=== PATIENT | female | born 1950 | race Caucasian/White ===

== ENCOUNTER → 2017-09-01 | Outpatient (CLI) | payer MEDICARE, OTHER ==
[~2017-09-01] MED LIST: AMLO10; AMLO5 PO; CITA20 PO; CLOP75; CLOT10; ESCI10; FAMC500 PO; HYDCHL12.5; LEVSOD100 PO; LEVSOD75; LEVSOD75 PO; LINZESS145 MCG; METO50ER PO; NEBI5 PO; OMEP20ER PO; OXYACE5T PO; PRAV20 PO; PRED10 PO
[2017-09-01 14:17] LABS: Adenovirus F 40/41 Not Detected (NOT DETECT); Astrovirus Not Detected (NOT DETECT); Cryptosporidium Not Detected (NOT DETECT); Cyclospora Cayetanensis Not Detected (NOT DETECT); E. Coli O157 Not Detected (NOT DETECT); Entamoeba Histolytica Not Detected (NOT DETECT); Enteroaggregative E. coli-EAEC Not Detected (NOT DETECT); Enteropathogenic E. coli-EPEC Not Detected (NOT DETECT); Enterotoxigenic E. coli-ETEC Not Detected (NOT DETECT); Giardia Lamblia Not Detected (NOT DETECT); Norovirus GI/GII Not Detected (NOT DETECT); Plesiomonas Shigelloides Not Detected (NOT DETECT); Rotavirus A Not Detected (NOT DETECT); Salmonella Sp Not Detected (NOT DETECT); Shiga Toxin-prod E. coli-STEC Not Detected (NOT DETECT); Shigella/Enteroin E. coli-EIEC Not Detected (NOT DETECT); Vibrio Cholerae Not Detected (NOT DETECT); Vibrio Sp Not Detected (NOT DETECT); Yersinia Enterocolitica Not Detected (NOT DETECT)
[2017-09-01 20:33] LABS: Campylobacter Sp Detected (NOT DETECT); Sapovirus Detected (NOT DETECT)
== END | disposition home or self-care (01) ==
LOC: LAB EV 13:20
PROVIDERS: Nurse Practitioner Family
DX: K52.9 Noninfective gastroenteritis and colitis, unspecified (principal)
CPT/HCPCS: 87507

== ENCOUNTER 2020-10-27 04:22 | Day surgery (SDC) | payer MEDICARE, OTHER ==
[2020-10-27] MEDS ORDERED: LISI20 PO (09:47)
== END 2020-10-27 10:47 | disposition home or self-care (01) ==
LOC: ATC 04:22
DX: D35.2 Benign neoplasm of pituitary gland (principal); I10 Essential (primary) hypertension; J45.909 Unspecified asthma, uncomplicated; E03.9 Hypothyroidism, unspecified; Z88.8 Allergy status to other drugs, medicaments and biological substances; Z86.73 Personal history of transient ischemic attack (TIA), and cerebral infarction without residual deficits
CPT/HCPCS: 80400; 82533; J0834

== ENCOUNTER 2021-01-18 09:02 | Day surgery (SDC) | payer MEDICARE, OTHER ==
[~2021-01-18] VITALS: Ht 160 cm; Wt 57.4 kg
[~2021-01-18 09:02] MED LIST changes: +ASPI81CH PO; +HYDCOR10 PO; +LISI20 PO
--- NOTE | 2021-01-18 18:28 | NUR ---
PATIENT ARRIVED TO THE FLOOR FROM PACU ON BED. POLAR PACK IN PLACE AND DRESSING TO LEFT HIP CLEAN, DRY AND INTACT. FEELING SENSATION AT KNEES NOW AND CAN MOVE HER LEGS. COMPLAINS OF NAUSEA AND DIZZINESS WITH MOVEMENT. HAS BEEN MEDICATED WITH NAUSEA MEDS WITH SOME RELIEF. HAS HAD SIPS OF WATER WITH NO VOMITING. NO COMPLAINTS OF PAIN VOICED. CALL LIGHT AND WATER IN EASY REACH. ABLE TO MAKE NEEDS AND WANTS KNOWN. NO SIGNS OR SYMPTOMS ACUTE DISTRESS NOTED AT THIS TIME. CURRENTLY RESTING WITH EYES CLOSED. DAUGHTER VISITED. BLADDER SCAN DUE AT 1930, PATIENT HAS NO DESIRE TO URINATE AT THIS TIME. WILL CONTINUE TO MONITOR.
[2021-01-19 04:41] LABS: BASOPHILS ABSOLUTE AUTO 0.01 K/mm3 (0.00-0.23); BASOPHILS PERCENT AUTO 0 % (0-2); EOSINOPHILS PERCENT AUTO 0 % (0-6); Hematocrit 29.2 % (33.0-51.0); Hemoglobin 9.7 g/dL (11.5-16.0); IMMATURE GRAN ABSOLUTE AUTO 0.06 K/mm3 (0.00-0.10); IMMATURE GRAN PERCENT AUTO 1 % (0-1); LYMPHOCYTES ABSOLUTE AUTO 0.64 K/mm3 (0.84-5.20); LYMPHOCYTES PERCENT AUTO 6 % (21-46); MONOCYTES ABSOLUTE AUTO 0.65 K/mm3 (0.16-1.47); MONOCYTES PERCENT AUTO 6 % (4-13); Mean Corpuscular HGB 32.6 pg (26.0-34.0); Mean Corpuscular HGB Conc 33.2 g/dL (31.5-36.5); Mean Corpuscular Volume 98 fL (80-100); Mean Platelet Volume 10.4 fL (9.1-12.4); NEUTROPHILS ABSOLUTE AUTO 9.34 K/mm3 (1.96-9.15); NEUTROPHILS PERCENT AUTO 87 % (41-73); Platelet Count 211 K/mm3 (150-400); RDW Coefficient Variation 13.2 % (11.7-14.2); RDW Standard Deviation 47.4 fL (35.1-46.3); Red Blood Cell Count 2.98 M/mm3 (3.80-5.20)
--- NOTE | 2021-01-19 04:51 | NUR ---
PT IS A/OX3. ABLE TO MAKE HER NEEDS KNOWN. PLEASANT AND COOPERATIVE WITH STAFF AND HER CARE. NO EVENTS OVER NIGHT. SHE IS S/P LTHA. LT HIP INCISION COVERED WITH AN AQUACEL DRSG. WBAT TO LLE. BT'S POS X4. DENIED N/V. TOLERATING CL DIET WELL. PAIN IS MINIMAL. REFUSED PAIN MEDS. VOIDS W/OUT DIFFICULTY W/BED BARAKAT. DID HAVE SPINAL BLOCK W/SURGERY. HAS MOVEMENT AND SENSATION TO BLE'S.
[2021-01-19 05:01] LABS: Anion Gap 4 mmol/L (6-16); Blood Urea Nitrogen 11 mg/dL (8-24); Bun/Creatinine Ratio 14.4 (12.0-20.0); CO2, Blood 27 mmol/L (21-32); Calcium, Blood 8.6 mg/dL (8.5-10.1); Chloride, Blood 103 mmol/L (98-108); Creatinine, Blood 0.76 mg/dL (0.40-1.00); Glomerular Filtration Rate >60 (60-); Glucose, Blood 114 mg/dL (70-99); Potassium, Blood 4.6 mmol/L (3.5-5.5); Sodium, Blood 134 mmol/L (136-145)
[2021-01-19] MEDS ORDERED: ASPI81CH PO (09:49)
[2021-01-19] MEDS ORDERED: OXAYDO5 M5 PO (09:49)
[2021-01-19] MEDS ORDERED: ACET500 PO (09:49)
--- NOTE | 2021-01-19 15:48 | NUR ---
DISCHARGE INSTRUCTIONS GIVEN TO PATIENT., PATIENT VERBALIZED UNDERSTANDING OF INSTRUCTIONS. DRESSING TO LEFT HIP CLEAN/DRY/INTACT. IV REMOVED. PATIENT DISCHARGED VIA WHEELCHAIR.
== END 2021-01-19 15:48 | disposition home or self-care (01) ==
LOC: ORSCMMR 09:02 → PRE IP 09:30 → EDSTATUS 10:30 → PRE IP 10:45 → SURS 13:48 → ORSCMMR 01-19 15:48
PROVIDERS: Orthopaedic Surgery
PROC: 0SRB02A Replacement of Left Hip Joint with Metal on Polyethylene Synthetic Substitute, Uncemented, Open Approach (ICD-10-PCS; principal; 2021-01-18 10:45)
DX: M16.12 Unilateral primary osteoarthritis, left hip (principal); I10 Essential (primary) hypertension; K21.9 Gastro-esophageal reflux disease without esophagitis; F41.9 Anxiety disorder, unspecified; Z86.73 Personal history of transient ischemic attack (TIA), and cerebral infarction without residual deficits; Z79.82 Long term (current) use of aspirin; Z79.899 Other long term (current) drug therapy
CPT/HCPCS: 36415; 72170; 80048; 83735; 85025; 97110; 97110-CQ; 97116; 97116-CQ; 97162; 97530-CQ; A9270; C1713; C1776; J0171; J0690; J0735; J1100; J1885; J2250; J2405; J2704; J2765; J2795; J3010; J7120

== ENCOUNTER 2021-01-26 09:38 | Emergency (ER) | payer MEDICARE, OTHER ==
[~2021-01-26] VITALS: Ht 157.5 cm; Wt 58.1 kg
[~2021-01-26 09:38] MED LIST changes: +ACET500 PO; +OXAYDO5 M5 PO
== END 2021-01-26 11:33 | disposition home or self-care (01) ==
LOC: ER 09:38
DX: S80.12XA Contusion of left lower leg, initial encounter (principal); I10 Essential (primary) hypertension; Z79.899 Other long term (current) drug therapy; X58.XXXA Exposure to other specified factors, initial encounter
CPT/HCPCS: 93971; 99284-25

== ENCOUNTER 2022-01-24 16:40 | Observation (INO) | payer MEDICARE, OTHER ==
[~2022-01-24] VITALS: Ht 160 cm; Wt 56.8 kg
[~2022-01-24 16:40] MED LIST changes: -ACET325 PO; -ELIQUIS5 M2 PO; -METOPROLOL SUCC25 MG PO; -OXYC5 PO; -PANT40 PO
--- NOTE | 2022-01-24 18:47 | NUR ---
PT IS DIRECT ADMIT TO MEDICAL FLOOR AT 1700. PT ABLE TO AMBULATE TO BATHROOM AND THEN BED WITH MINIMAL ASSISTANCE. PT HAS VERY SLOW, CAREFUL MOVEMENT AND STATES FEELING DIZZY. PT A&OX4 AND PLEASANT. PT HAS HAD FAMILY AT BEDSIDE. PT C/O OF PAIN IN LOWER BACK AND RIGHT HIP R/T FALL. HEAT PACK IN PLACE. PT AND FAMILY ORIENTED TO ROOM. BED IN LOWEST POSTITION AND CALL LIGHT IN REACH.
[2022-01-25 05:17] LABS: BASOPHILS ABSOLUTE AUTO 0.04 K/mm3 (0.00-0.23); BASOPHILS PERCENT AUTO 1 % (0-2); EOSINOPHILS ABSOLUTE AUTO 0.08 K/mm3 (0.00-0.68); EOSINOPHILS PERCENT AUTO 2 % (0-6); Hematocrit 31.3 % (33.0-51.0); Hemoglobin 10.6 g/dL (11.5-16.0); IMMATURE GRAN ABSOLUTE AUTO 0.01 K/mm3 (0.00-0.10); IMMATURE GRAN PERCENT AUTO 0 % (0-1); LYMPHOCYTES ABSOLUTE AUTO 0.86 K/mm3 (0.84-5.20); LYMPHOCYTES PERCENT AUTO 19 % (21-46); MONOCYTES ABSOLUTE AUTO 0.48 K/mm3 (0.16-1.47); MONOCYTES PERCENT AUTO 10 % (4-13); Mean Corpuscular HGB 33.2 pg (26.0-34.0); Mean Corpuscular HGB Conc 33.9 g/dL (31.5-36.5); Mean Corpuscular Volume 98 fL (80-100); Mean Platelet Volume 9.8 fL (9.1-12.4); NEUTROPHILS ABSOLUTE AUTO 3.16 K/mm3 (1.96-9.15); NEUTROPHILS PERCENT AUTO 68 % (41-73); Platelet Count 247 K/mm3 (150-400); RDW Coefficient Variation 13.4 % (11.7-14.2); RDW Standard Deviation 48.7 fL (35.1-46.3); Red Blood Cell Count 3.19 M/mm3 (3.80-5.20); White Blood Cell Count 4.63 K/mm3 (4.00-11.30)
--- NOTE | 2022-01-25 05:31 | NUR ---
TRACK TEMPLATE MAKER SUMMARY NO ACUTE CHANGES. PT IS A/OX4; SLOW TO RESPOND/MOVE. PT IS ABLE TO XFER OUT OF BED/AMBULATE 1 PERSON SBA. PT DENIES SOB. VSS. PT CONT TO C/O PAIN IN LOWER BACK AND COMES/GOES AND NAUSEA; MED P/EMAR. PT HAS LISINOPRIL AND THYROID MEDICINE F/HOME ON HER PERSON. VERIFIED MEDS WERE IN EM[facility] F/APPROPIATE DOSE AND EDUCATION PT NOT TO TAKE HOME MEDS; ADVISED T/SEND HOME W/FAMILY. PT AWAKE INTERMITTANTLY T/O THE NIGHT. PT ABLE TO ADVOCATE FOR NEEDS AND CALLS APPROPRIATELY; CALL LIGHT IN REACH.
[2022-01-25 05:44] LABS: Albumin, Blood 3.1 g/dL (3.4-5.0); Albumin/Globulin Ratio 1.1 (0.8-1.8); Bilirubin, Total 0.6 mg/dL (0.1-1.0); Bun/Creatinine Ratio 15.9 (12.0-20.0); Calcium, Blood 8.3 mg/dL (8.5-10.1); Creatinine, Blood 0.82 mg/dL (0.40-1.00); Globulin, Blood 2.9 g/dL (2.2-4.0); Magnesium, Blood 2.1 mg/dL (1.6-2.4); Phosphorus, Blood 3.2 mg/dL (2.5-4.9); Potassium, Blood 4.4 mmol/L (3.5-5.5)
[2022-01-25] MEDS ORDERED: ELIQUIS5 M2 PO (17:28)
--- NOTE | 2022-01-25 18:18 | NUR ---
DISCHARGE NOTE. PT D/C'D HOME WITH DAUGHTER. DISCHARGE INSTRUCTIONS AND EDUCATION GIVEN TO PT. PT HAD NO QUESTIONS OR CONCERNS AT THIS TIME. IV REMOVED WITH CATHETER TIP IN PLACE. PT TOLERATED WELL. TELE D/C'D. PT GIVEN ONE TIME DOSE OF ELIQUIS, PER DR FLORES, D/T PHARMACY CLOSING FOR NIGHT. BELONGINGS GIVEN TO PT. PT TAKEN TO VEHICLE BY WHEELCHAIR.
[2022-01-30] MEDS ORDERED: METOPROLOL SUCC25 MG PO (20:13)
[2022-01-30] MEDS ORDERED: LISI20 PO (20:14)
[2022-02-02] MEDS ORDERED: ELIQUIS5 M2 PO (10:16)
[2022-02-02] MEDS ORDERED: ACET325 PO (10:16)
[2022-02-02] MEDS ORDERED: PANT40 PO (10:17)
[2022-02-02] MEDS ORDERED: OXYC5 PO (10:17)
== END 2022-01-25 18:15 | disposition home or self-care (01) ==
LOC: MEDS 16:40
PROVIDERS: Family Medicine; ADMIT Family Medicine
DX: R55 Syncope and collapse (principal); I26.99 Other pulmonary embolism without acute cor pulmonale; I47.1 Supraventricular tachycardia; S30.0XXA Contusion of lower back and pelvis, initial encounter; W19.XXXA Unspecified fall, initial encounter; E87.1 Hypo-osmolality and hyponatremia; I45.19 Other right bundle-branch block; I10 Essential (primary) hypertension; E78.5 Hyperlipidemia, unspecified; K21.9 Gastro-esophageal reflux disease without esophagitis; E03.9 Hypothyroidism, unspecified; Z86.73 Personal history of transient ischemic attack (TIA), and cerebral infarction without residual deficits; Z79.82 Long term (current) use of aspirin; Z79.899 Other long term (current) drug therapy
CPT/HCPCS: 36415; 80053; 82533; 83735; 84100; 84484; 85025; 93306; 93970; A9270; J1650; J3480

== ENCOUNTER → 2022-01-24 | Outpatient (CLI) | payer MEDICARE, OTHER ==
[~2022-01-24] MED LIST changes: +ACET325 PO; +ELIQUIS5 M2 PO; +METOPROLOL SUCC25 MG PO; +OXYC5 PO; +PANT40 PO
[2022-01-24 11:46] LABS: BASOPHILS ABSOLUTE AUTO 0.04 K/mm3 (0.00-0.23); BASOPHILS PERCENT AUTO 1 % (0-2); EOSINOPHILS ABSOLUTE AUTO 0.07 K/mm3 (0.00-0.68); EOSINOPHILS PERCENT AUTO 1 % (0-6); Hematocrit 38.8 % (33.0-51.0); Hemoglobin 13.4 g/dL (11.5-16.0); IMMATURE GRAN ABSOLUTE AUTO 0.11 K/mm3 (0.00-0.10); IMMATURE GRAN PERCENT AUTO 2 % (0-1); LYMPHOCYTES ABSOLUTE AUTO 1.22 K/mm3 (0.84-5.20); LYMPHOCYTES PERCENT AUTO 21 % (21-46); MONOCYTES ABSOLUTE AUTO 0.58 K/mm3 (0.16-1.47); MONOCYTES PERCENT AUTO 10 % (4-13); Mean Corpuscular HGB 33.6 pg (26.0-34.0); Mean Corpuscular HGB Conc 34.5 g/dL (31.5-36.5); Mean Corpuscular Volume 97 fL (80-100); Mean Platelet Volume 9.6 fL (9.1-12.4); NEUTROPHILS ABSOLUTE AUTO 3.91 K/mm3 (1.96-9.15); NEUTROPHILS PERCENT AUTO 66 % (41-73); Platelet Count 325 K/mm3 (150-400); RDW Coefficient Variation 13.4 % (11.7-14.2); Red Blood Cell Count 3.99 M/mm3 (3.80-5.20); White Blood Cell Count 5.93 K/mm3 (4.00-11.30)
[2022-01-24 12:04] LABS: Albumin, Blood 4.1 g/dL (3.4-5.0); Albumin/Globulin Ratio 1.1 (0.8-1.8); Bilirubin, Total 0.6 mg/dL (0.1-1.0); Bun/Creatinine Ratio 11.6 (12.0-20.0); Calcium, Blood 9.1 mg/dL (8.5-10.1); Creatinine, Blood 0.95 mg/dL (0.40-1.00); Globulin, Blood 3.9 g/dL (2.2-4.0); Potassium, Blood 3.6 mmol/L (3.5-5.5)
== END | disposition home or self-care (01) ==
LOC: LAB 11:40 → LAB SHORT 11:40
PROVIDERS: Family Medicine
DX: R55 Syncope and collapse (principal)
CPT/HCPCS: 80053; 84484; 85025; 85379

== ENCOUNTER → 2022-01-26 | Outpatient (CLI) | payer MEDICARE, OTHER ==
[~2022-01-26] MED LIST changes: +ACET325 PO; +ELIQUIS5 M2 PO; +METOPROLOL SUCC25 MG PO; +OXYC5 PO; +PANT40 PO
[2022-01-26 12:11] LABS: BASOPHILS ABSOLUTE AUTO 0.05 K/mm3 (0.00-0.23); BASOPHILS PERCENT AUTO 1 % (0-2); EOSINOPHILS ABSOLUTE AUTO 0.05 K/mm3 (0.00-0.68); EOSINOPHILS PERCENT AUTO 1 % (0-6); IMMATURE GRAN ABSOLUTE AUTO 0.03 K/mm3 (0.00-0.10); IMMATURE GRAN PERCENT AUTO 1 % (0-1); LYMPHOCYTES PERCENT AUTO 8 % (21-46); MONOCYTES ABSOLUTE AUTO 0.57 K/mm3 (0.16-1.47); MONOCYTES PERCENT AUTO 10 % (4-13); Mean Corpuscular HGB 33.4 pg (26.0-34.0); Mean Corpuscular HGB Conc 34.3 g/dL (31.5-36.5); Mean Corpuscular Volume 98 fL (80-100); Mean Platelet Volume 9.6 fL (9.1-12.4); NEUTROPHILS ABSOLUTE AUTO 4.74 K/mm3 (1.96-9.15); NEUTROPHILS PERCENT AUTO 80 % (41-73); Platelet Count 254 K/mm3 (150-400); RDW Coefficient Variation 13.2 % (11.7-14.2); RDW Standard Deviation 47.8 fL (35.1-46.3); Red Blood Cell Count 3.59 M/mm3 (3.80-5.20); White Blood Cell Count 5.94 K/mm3 (4.00-11.30)
== END | disposition home or self-care (01) ==
LOC: LAB 11:51 → LAB SHORT 11:51
PROVIDERS: Family Medicine
DX: D64.9 Anemia, unspecified (principal)
CPT/HCPCS: 85025

== ENCOUNTER 2022-01-30 19:10 | Inpatient (IN) | payer MEDICARE, OTHER ==
[~2022-01-30] VITALS: Ht 160 cm; Wt 60.7 kg
[~2022-01-30 19:10] MED LIST changes: -ACET325 PO; -METOPROLOL SUCC25 MG PO; -OXYC5 PO; -PANT40 PO
[2022-01-30] MEDS ORDERED: METOPROLOL SUCC25 MG PO ×2 (20:13)
[2022-01-30] MEDS ORDERED: LISI20 PO ×2 (20:14)
[2022-01-30 20:36] LABS: BASOPHILS ABSOLUTE AUTO 0.05 K/mm3 (0.00-0.23); BASOPHILS PERCENT AUTO 0 % (0-2); EOSINOPHILS ABSOLUTE AUTO 0.04 K/mm3 (0.00-0.68); EOSINOPHILS PERCENT AUTO 0 % (0-6); Hematocrit 31.8 % (33.0-51.0); Hemoglobin 10.8 g/dL (11.5-16.0); IMMATURE GRAN ABSOLUTE AUTO 0.04 K/mm3 (0.00-0.10); IMMATURE GRAN PERCENT AUTO 0 % (0-1); LYMPHOCYTES ABSOLUTE AUTO 0.63 K/mm3 (0.84-5.20); LYMPHOCYTES PERCENT AUTO 5 % (21-46); MONOCYTES ABSOLUTE AUTO 0.82 K/mm3 (0.16-1.47); MONOCYTES PERCENT AUTO 7 % (4-13); Mean Corpuscular HGB 33.9 pg (26.0-34.0); Mean Corpuscular Volume 100 fL (80-100); NEUTROPHILS ABSOLUTE AUTO 11.01 K/mm3 (1.96-9.15); NEUTROPHILS PERCENT AUTO 88 % (41-73); Platelet Count 247 K/mm3 (150-400); RDW Coefficient Variation 13.4 % (11.7-14.2); RDW Standard Deviation 48.9 fL (35.1-46.3); Red Blood Cell Count 3.19 M/mm3 (3.80-5.20); White Blood Cell Count 12.59 K/mm3 (4.00-11.30)
[2022-01-30 20:39] LABS: International Normalized Ratio 1.09; Prothrombin Time Results 11.4 Sec (9.7-11.5)
[2022-01-30 21:05] LABS: Albumin, Blood 3.4 g/dL (3.4-5.0); Albumin/Globulin Ratio 0.9 (0.8-1.8); Bilirubin, Total 0.3 mg/dL (0.1-1.0); Bun/Creatinine Ratio 20.8 (12.0-20.0); Calcium, Blood 8.3 mg/dL (8.5-10.1); Creatinine, Blood 1.01 mg/dL (0.40-1.00); Globulin, Blood 3.6 g/dL (2.2-4.0); Potassium, Blood 4.2 mmol/L (3.5-5.5)
--- NOTE | 2022-01-31 03:15 | NUR ---
LATE ENTRY SPOKE TO DR SHERIDAN AT 0100 AM RE PT HYPOTENSION. ORDERS GIVEN FOR 1LNS BOLUS. WILL CONTINUE TO MONITOR
--- NOTE | 2022-01-31 03:16 | NUR ---
LATE ENTRY PT ARRIVED TO ICU BED 11 FROM APPEALS REFEREE AT 2306. TR BAND INFLATED ON RIGHT RADIAL W/NO BLEEDING NOTED. PT IS ALERT AND ORIENTED X4. SHE IS HAVING PAIN FROM A FRACTURED BACK AND RIGHT HIP FROM A RECENT FALL. VSS AT THIS TIME. NO ACUTE S/S OF DISTRESS NOTED AT TIME OF ADMISSION. WILL CONTINUE TO MONITOR.
[2022-01-31 04:06] LABS: Calcium, Blood 7.3 mg/dL (8.5-10.1); Creatinine, Blood 0.81 mg/dL (0.40-1.00); Potassium, Blood 4.2 mmol/L (3.5-5.5)
--- NOTE | 2022-01-31 06:38 | NUR ---
SHIFT SUMMERY PT IS ALERT AND ORIENTED X4. SHE HAS HAD LOW TO SOFT BLOOD PRESSURES OVERNIGHT. DR SHERIDAN AWARE. SHE HAS A BACK AND RIGHT HIP FRACTURE THAT HAS MADE PAIN CONTROL DIFFICULT OVERNIGHT. SHE HAS HAD A SMALL AMOUNT OF CHEST PAIN AND A REPEAT CTA WAS DONE TO EVALUATE ANY WORSENING OF EXISITING PULMONARY EMBOLUS. PT TOLERATED PROCEDURE WELL, VS REMAINED STABLE THROUGHOUT. DR SHERIDAN AWARE OF RESULTS. SHE IS SB ON THE MONITOR AT THIS TIME AND HAS BEEN AFEBRILE. TR BAND WAS REMOVED PER POLICY. TEGADERM IN PLACE W/NO BLEEDING NOTED. SHE IS ON ROOM AIR.
--- NOTE | 2022-01-31 07:00 | NUR ---
ASSUME CARE: I have assumed care of this patient.
[2022-01-31 13:22] LABS: Creatine Kinase MB 1.7 ng/mL (0.0-3.6); Creatine Kinase MB Index 3.5 (0.0-4.0)
[2022-01-31 13:50] LABS: PCO2 Arterial 35.7 mmHg (35-45); PO2 Arterial 77.2 mmHg (80-100); pH Blood Arterial 7.44 (7.35-7.45)
--- NOTE | 2022-01-31 14:03 | NUR ---
pt in bed with grimace struggling with positioning and comfort due to back fractures. pt struggling to follow conversation and answer questions. She does anwer anay to ringing in ears and diffculty swallowing. When asked about headache and discomfort some difficlty tracking conversation. Pt guarding and grimacing very thin and frail. Review of medications with nursing. physicain added another lidocaine patch, pt decribing spasmotic pain to chest neck and head. She is also having increased low back pain and feel hard to take a breath. pt high risk for readmission and repeat ER visits. Cardiology in to see patient, suggest pt have pulmonolgy see her and a follow her on the outside. She has emboic event and difficulty with ventilation. Suggest oncology follow up. Will follow for symptom manangment and assist with care plan. Will continue supportive visits with family they are very anxious will need support. Will follow up with physician consults for plan of care.
--- NOTE | 2022-01-31 17:59 | NUR ---
SHIFT SUMMARY: NEURO: WNL; pt transfers self with standby assist. RESPIRATORY: SOB noted, worse with exertion CARDIAC: chest pain managed best with 5mg oxycodone. ECHO completed today. ECG unchanged from priors GI/: bowel regime started for constipation. pt tolerating gluten free, cardiac diet, but reports decreased appetite. Voiding on bedside commode independantly. SKIN: no breakdown noted. PSYCH/SOCIAL: family at bedside and supportive. pt anxious.
--- NOTE | 2022-02-01 06:37 | NUR ---
END OF SHIF SUMMARY NO ACUTE EVENTS OVERNIGHT VITALS WNL. C/O PAIN IN RT HIP NO CHEST PAIN COMPLAINTS GAVE OXY 5MG X2 OVER NIGHT PT STATED SLEPT VERY WELL. WILL CONTINUE TO MONITOR AND REPORT OFF ONCOMING RN.
[2022-02-01 07:42] LABS: BASOPHILS ABSOLUTE AUTO 0.03 K/mm3 (0.00-0.23); BASOPHILS PERCENT AUTO 1 % (0-2); EOSINOPHILS ABSOLUTE AUTO 0.06 K/mm3 (0.00-0.68); EOSINOPHILS PERCENT AUTO 1 % (0-6); Hematocrit 26.2 % (33.0-51.0); Hemoglobin 8.2 g/dL (11.5-16.0); IMMATURE GRAN ABSOLUTE AUTO 0.03 K/mm3 (0.00-0.10); IMMATURE GRAN PERCENT AUTO 1 % (0-1); LYMPHOCYTES ABSOLUTE AUTO 0.79 K/mm3 (0.84-5.20); LYMPHOCYTES PERCENT AUTO 13 % (21-46); MONOCYTES ABSOLUTE AUTO 0.62 K/mm3 (0.16-1.47); MONOCYTES PERCENT AUTO 10 % (4-13); Mean Corpuscular HGB 32.3 pg (26.0-34.0); Mean Corpuscular HGB Conc 31.3 g/dL (31.5-36.5); Mean Corpuscular Volume 103 fL (80-100); Mean Platelet Volume 10.2 fL (9.1-12.4); NEUTROPHILS ABSOLUTE AUTO 4.46 K/mm3 (1.96-9.15); NEUTROPHILS PERCENT AUTO 74 % (41-73); Platelet Count 216 K/mm3 (150-400); RDW Coefficient Variation 13.9 % (11.7-14.2); RDW Standard Deviation 53.1 fL (35.1-46.3); Red Blood Cell Count 2.54 M/mm3 (3.80-5.20); White Blood Cell Count 5.99 K/mm3 (4.00-11.30)
[2022-02-01 08:00] LABS: Calcium, Blood 8.2 mg/dL (8.5-10.1); Creatinine, Blood 0.81 mg/dL (0.40-1.00); Potassium, Blood 4.4 mmol/L (3.5-5.5)
[2022-02-01 08:50] LABS: Source, Urine Clean Catch
[2022-02-01 08:57] LABS: Appearance, Urine Clear (Clear); Bilirubin, Urine Neg (Neg); Blood, Urine 1+ (Neg); Color, Urine Yellow (P-Yellow); Glucose Qualitative, Urine Neg (Neg); Ketones, Urine Neg (Neg); Leukocyte Esterase, Urine 1+ (Neg); Nitrite, Urine Neg (Neg); Protein, Urine 1+ (Neg); Specific Gravity, Urine 1.015 (1.003-1.022); Urobilinogen, Urine NORM (Normal)
[2022-02-01 09:04] LABS: Bacteria Few /hpf; Mucus Light (0-Heavy); Red Blood Cells, Urine 0-2 /hpf (0-2); Squamous Epithelial Cells Few /hpf (Few); White Blood Cells, Urine 0-2 /hpf (0-5)
--- NOTE | 2022-02-01 10:30 | NUR ---
SHIFT ASSESSMENT PT ALERT AND ORIENTED, SITTING UPRIGHT IN BED. FOLLOWING COMMANDS, ARSALAN. ASSISTED PT TO BEDSIDE COMMODE, PT DID WELL, JUST NEEDED HELP MANAGING LINES. PT C/O LOW BACK PAIN AND R HIP PAIN, LIDOCAINE PATCHES APPLIED WITH LITTLE RELIEF. MEDICATED PT WITH PRN OXYCODONE. NSR ON THE USABILITY STRATEGIST. VSS. PT STILL HAS NOT HAD A BM, BOWEL CARE MEDS GIVEN. NO OTHER COMPLAINTS OR CONCERNS AT THIS TIME.
--- NOTE | 2022-02-01 13:21 | NUR ---
Spiritual Care Visit. Pt. is in bed and welcomes my visit. Pt. is unsettled mostly because she is shivering and requests another blanket. Pt. identifies as a woman of guy and welcomes spiritual care. Facilitate a short life review, and pray with Pt. Pt. displays evidence of engagement. Pt. verbalizes gratitude for the spiritual care visit. Relayed the need for warm blankets to ICU nurse Kecia.
--- NOTE | 2022-02-01 17:53 | NUR ---
SHIFT SUMMARY PT REMAINS ALERT AND ORIENTED. CONTINUES TO C/O MILD BACK/ HIP PAIN. MEDICATED PER JUN. NS INFUSING @ 125/HR, 1 OF 2 BAGS GIVEN. VSS. PT BEING TX TO MEDICAL FLOOR ROOM 360 VIA WHEELCHAIR.
--- NOTE | 2022-02-01 18:34 | NUR ---
SHIFT SUMMARY PATIENT ARRIVED ON MEDICAL FLOOR APROX 1814. RESTARTED IV FLUIDS AND ABX. NO ACUTE EVENTS. WILL REPORT TO FORECLOSURE PAR[place]GAL.
--- NOTE | 2022-02-02 05:39 | NUR ---
SHIFT SUMMARY PATIENT ALERT AND ORIENTED. MEDICATED PER EMAR FOR PAIN. HAD NO COMPLAINTS OF SHORTNESS OF BREATH. NO ACUTE ISSUES NOTED OVERNIGHT. CALL LIGHT WITHIN REACH. REPORT GIVEN TO ONCOMING RN.
[2022-02-02] MEDS ORDERED: ACET325 PO ×2 (10:16)
[2022-02-02] MEDS ORDERED: ELIQUIS5 M2 PO ×2 (10:16)
[2022-02-02] MEDS ORDERED: PANT40 PO ×2 (10:17)
[2022-02-02] MEDS ORDERED: OXYC5 PO ×2 (10:17)
--- NOTE | 2022-02-02 11:16 | NUR ---
DISCHARGE SUMMARY PATIENT IS ALERT AND ORIENTED. PATIENT HAS BEEN IND IN ROOM THIS SHIFT. PATIENT HAD IVS REMOVED WNL. PATIENT IS BEING DISCHARGED HOME WITH SON TRANSPORTING. NO ACUTE EVENTS THIS SHIFT.
== END 2022-02-02 11:14 | disposition home or self-care (01) | DRG 287 ==
LOC: ER 19:10 → ICUW 21:44 → MEDS 02-01 15:27 → ICUW 02-01 15:27 → MEDS 02-01 18:01
PROVIDERS: Internal Medicine; Internal Medicine Cardiovascular Disease; Internal Medicine Critical Care Medicine; Student in an Organized Health Care Education/Training Program; ADMIT Internal Medicine
PROC: 4A023N7 Measurement of Cardiac Sampling and Pressure, Left Heart, Percutaneous Approach (ICD-10-PCS; principal; 2022-01-30)
PROC: B2111ZZ Fluoroscopy of Multiple Coronary Arteries using Low Osmolar Contrast (ICD-10-PCS; 2022-01-30)
DX: I25.111 Atherosclerotic heart disease of native coronary artery with angina pectoris with documented spasm (principal); S32.019A Unspecified fracture of first lumbar vertebra, initial encounter for closed fracture; I47.1 Supraventricular tachycardia; E87.1 Hypo-osmolality and hyponatremia; R78.81 Bacteremia; D72.829 Elevated white blood cell count, unspecified; I95.9 Hypotension, unspecified; Z86.73 Personal history of transient ischemic attack (TIA), and cerebral infarction without residual deficits; E78.5 Hyperlipidemia, unspecified; E03.9 Hypothyroidism, unspecified; W18.30XA Fall on same level, unspecified, initial encounter; Z86.718 Personal history of other venous thrombosis and embolism; Z86.711 Personal history of pulmonary embolism; Z90.710 Acquired absence of both cervix and uterus; Z98.890 Other specified postprocedural states; Z79.899 Other long term (current) drug therapy
CPT/HCPCS: 36415; 36600; 71045; 71260; 76937; 80048; 80053; 81001; 82550; 82553; 82803; 83880; 84145; 84484; 85025; 85610; 85651; 85730; 86430; 87040; 87086; 93005; 93010; 93308; 93321; 93454; 97110; 97116; 97162; 99152; 99153; A9270; C1769; C1887; C1894; J0295; J0456; J1644; J2250; J2405; J3010; J7030; J7040; J7050; J7120; Q9967

== ENCOUNTER → 2022-03-17 | Outpatient (CLI) | payer MEDICARE, OTHER ==
[~2022-03-17] MED LIST changes: +ACET325 PO; +METOPROLOL SUCC25 MG PO; +OXYC5 PO; +PANT40 PO
[2022-03-18 10:34] LABS: Stool Occult Bld Immuno 1 Negative (NEGATIVE)
== END | disposition home or self-care (01) ==
LOC: LAB 11:35 → LAB SHORT 11:35
PROVIDERS: Internal Medicine
DX: D53.9 Nutritional anemia, unspecified (principal)
CPT/HCPCS: 82274

== ENCOUNTER → 2023-01-02 | Outpatient (CLI) | payer MEDICARE, OTHER ==
[2023-01-03 11:03] LABS: Source, Urine Clean Catch
[2023-01-03 13:35] LABS: Bacteria Not Seen /hpf; Red Blood Cells, Urine Not Seen /hpf (0-2); Squamous Epithelial Cells Few /hpf (Few); White Blood Cells, Urine 0-2 /hpf (0-5)
== END ==
LOC: LAB 15:00 → LAB SHORT 15:00
PROVIDERS: Family Medicine
DX: R31.29 Other microscopic hematuria (principal)
CPT/HCPCS: 81015

== ENCOUNTER 2023-02-10 06:08 | Day surgery (SDC) | payer MEDICARE, OTHER ==
[~2023-02-10] VITALS: Ht 160 cm; Wt 56.6 kg
[2023-02-10] MEDS ORDERED: AMLO5 (06:47)
--- NOTE | 2023-02-10 07:31 | NUR ---
02/10/23 0731 Lashawn Garcia PATCH PULLED OUT OF PIXIS BY BRIGETTE AVILA PER DR. VALENTINO ORDERS. DR. HENDERSON WILL GIVE PATCH IN OR.
--- NOTE | 2023-02-10 09:18 | NUR ---
02/10/23 0917 VALENTIN JEAN BAPTISTE PT IS ALERT, TALKING. PT CONTINUES TO DENIES PAIN AND NAUSEA.
[2023-02-10 09:54] VITALS: BP 153/88
== END 2023-02-10 10:33 | disposition home or self-care (01) ==
LOC: ORSCSDS 06:08
PROVIDERS: Orthopaedic Surgery
PROC: 0MBM0ZZ Excision of Left Hip Bursa and Ligament, Open Approach (ICD-10-PCS; principal; 2023-02-10 07:30)
DX: M70.62 Trochanteric bursitis, left hip (principal); I10 Essential (primary) hypertension; Z86.73 Personal history of transient ischemic attack (TIA), and cerebral infarction without residual deficits; F41.9 Anxiety disorder, unspecified; Z86.718 Personal history of other venous thrombosis and embolism; Z79.01 Long term (current) use of anticoagulants; Z79.899 Other long term (current) drug therapy
CPT/HCPCS: A9270; J0690; J1100; J1885; J2405; J2704; J3010; J7120

== ENCOUNTER 2023-04-28 08:19 | Emergency (ER) | payer MEDICARE, OTHER ==
[~2023-04-28] VITALS: Ht 160 cm; Wt 58.1 kg
[~2023-04-28 08:19] MED LIST changes: +AMLO5
[2023-04-28 09:04] VITALS: BP 130/86
[2023-04-28 09:54] LABS: BASOPHILS ABSOLUTE AUTO 0.05 K/mm3 (0.00-0.23); BASOPHILS PERCENT AUTO 1 % (0-2); EOSINOPHILS ABSOLUTE AUTO 0.01 K/mm3 (0.00-0.68); EOSINOPHILS PERCENT AUTO 0 % (0-6); Hematocrit 37.1 % (33.0-51.0); Hemoglobin 12.4 g/dL (11.5-16.0); IMMATURE GRAN ABSOLUTE AUTO 0.02 K/mm3 (0.00-0.10); IMMATURE GRAN PERCENT AUTO 0 % (0-1); LYMPHOCYTES ABSOLUTE AUTO 0.91 K/mm3 (0.84-5.20); LYMPHOCYTES PERCENT AUTO 9 % (21-46); MONOCYTES ABSOLUTE AUTO 0.79 K/mm3 (0.16-1.47); MONOCYTES PERCENT AUTO 8 % (4-13); Mean Corpuscular HGB 33.3 pg (26.0-34.0); Mean Corpuscular HGB Conc 33.4 g/dL (31.5-36.5); Mean Corpuscular Volume 100 fL (80-100); NEUTROPHILS ABSOLUTE AUTO 8.38 K/mm3 (1.96-9.15); NEUTROPHILS PERCENT AUTO 82 % (41-73); Platelet Count 223 K/mm3 (150-400); RDW Coefficient Variation 13.8 % (11.7-14.2); RDW Standard Deviation 50.8 fL (35.1-46.3); Red Blood Cell Count 3.72 M/mm3 (3.80-5.20); White Blood Cell Count 10.16 K/mm3 (4.00-11.30)
[2023-04-28 10:15] LABS: Albumin, Blood 3.6 g/dL (3.4-5.0); Albumin/Globulin Ratio 0.9 (0.8-1.8); Bilirubin, Total 0.7 mg/dL (0.1-1.0); Bun/Creatinine Ratio 18.1 (12.0-20.0); Calcium, Blood 8.8 mg/dL (8.5-10.1); Creatinine, Blood 0.77 mg/dL (0.40-1.00); Globulin, Blood 4.2 g/dL (2.2-4.0); Potassium, Blood 4.1 mmol/L (3.5-5.5); Total Protein, Blood 7.8 g/dL (6.4-8.2)
[2023-04-28] MEDS ORDERED: Bactrim Ds Tab1 EACH PO (12:39)
== END 2023-04-28 13:11 | disposition home or self-care (01) ==
LOC: ER 08:19
PROVIDERS: Physician Assistant
DX: J34.0 Abscess, furuncle and carbuncle of nose (principal); I10 Essential (primary) hypertension; Z86.73 Personal history of transient ischemic attack (TIA), and cerebral infarction without residual deficits; Z79.01 Long term (current) use of anticoagulants; Z79.899 Other long term (current) drug therapy
CPT/HCPCS: 70487; 80053; 85025; 96365-59; 99284-25; A9270; J0690; Q9967

== ENCOUNTER → 2023-05-08 | Outpatient (CLI) | payer MEDICARE, OTHER ==
[~2023-05-08] MED LIST changes: +Bactrim Ds Tab1 EACH PO
[2023-05-08 11:05] LABS: BASOPHILS ABSOLUTE AUTO 0.02 K/mm3 (0.00-0.23); BASOPHILS PERCENT AUTO 1 % (0-2); EOSINOPHILS PERCENT AUTO 0 % (0-6); Hematocrit 34.2 % (33.0-51.0); Hemoglobin 11.3 g/dL (11.5-16.0); Mean Corpuscular HGB 33.3 pg (26.0-34.0); Mean Corpuscular Volume 101 fL (80-100); Mean Platelet Volume 9.4 fL (9.1-12.4); Platelet Count 232 K/mm3 (150-400); RDW Coefficient Variation 13.5 % (11.7-14.2); RDW Standard Deviation 50.4 fL (35.1-46.3); Red Blood Cell Count 3.39 M/mm3 (3.80-5.20); White Blood Cell Count 3.12 K/mm3 (4.00-11.30)
[2023-05-08 11:12] LABS: Albumin, Blood 3.5 g/dL (3.4-5.0); Anion Gap 7 mmol/L (6-16); Blood Urea Nitrogen 20 mg/dL (8-24); CO2, Blood 28 mmol/L (21-32); Calcium, Blood 9.1 mg/dL (8.5-10.1); Chloride, Blood 99 mmol/L (98-108); Creatinine, Blood 1.05 mg/dL (0.40-1.00); Glomerular Filtration Rate 56 (60-); Glucose, Blood 94 mg/dL (70-99); Phosphorus, Blood 4.1 mg/dL (2.5-4.9); Potassium, Blood 4.4 mmol/L (3.5-5.5); Sodium, Blood 134 mmol/L (136-145)
[2023-05-08 11:13] LABS: IMMATURE GRAN ABSOLUTE AUTO 0.01 K/mm3 (0.00-0.10); IMMATURE GRAN PERCENT AUTO 0 % (0-1); LYMPHOCYTES ABSOLUTE AUTO 1.55 K/mm3 (0.84-5.20); LYMPHOCYTES PERCENT AUTO 50 % (21-46); MONOCYTES ABSOLUTE AUTO 0.32 K/mm3 (0.16-1.47); MONOCYTES PERCENT AUTO 10 % (4-13); NEUTROPHILS ABSOLUTE AUTO 1.22 K/mm3 (1.96-9.15); NEUTROPHILS PERCENT AUTO 39 % (41-73)
== END | disposition home or self-care (01) ==
LOC: LAB 11:01 → LAB SHORT 11:01
PROVIDERS: Family Medicine
DX: E87.1 Hypo-osmolality and hyponatremia (principal)
CPT/HCPCS: 80069; 85025

== ENCOUNTER → 2024-04-27 | Outpatient (CLI) | payer MEDICARE, OTHER ==
[~2024-04-27] MED LIST changes: -AMLO5; +Cetirizine HCl10 MG PO; +MECL25 PO; +TRAM50 PO; +ZYRTEC10 M2 PO
[2024-05-01 13:54] LABS: HSV 1 SUBTYPE BY PCR Not Detected; HSV 2 SUBTYPE BY PCR Not Detected; HSV SUBTYPE SOURCE Not Provided
== END ==
LOC: LAB SHORT 13:00 → LAB 13:00
PROVIDERS: Physician Assistant
DX: J34.0 Abscess, furuncle and carbuncle of nose (principal)
CPT/HCPCS: 87070; 87077; 87147; 87186; 87529

== ENCOUNTER 2024-09-10 11:23 | Day surgery (SDC) | payer MEDICARE, OTHER ==
[~2024-09-10] VITALS: Ht 154.9 cm; Wt 62.2 kg
[2024-09-10] VITALS (14 sets, daily range): BP systolic 101–155; BP diastolic 46–89
[~2024-09-10 11:23] MED LIST changes: +Acetaminophen 500 MG Tab PO SCH; +CeFAZolin Sodium 2,000 MG in NS 100 ML IV SCH; +Chlorhexidine Mouth Care 15 ML UDC MT SCH; +Lactated Ringer's 1,000 ML IV SCH; +Mepivacaine MPF 2% Inj 20 ML Vial INJ SCH; +OxyCODONE HCL 10 MG TABCR PO SCH; +Ropivacaine 0.5% HCl/Pf 123.125 MG,EPINEPHrine HCL 0.25 MG,Ketorolac Tromethamine 15 MG... INFIL SCH; +TURMERIC500 M2 PO; +Tranexamic Acid 100 ML IV SCH
[2024-09-10] MEDS ORDERED: FentaNYL Citrate 50 MCG/ML 2 ML Injection ONE (11:41)
[2024-09-10] MEDS ORDERED: propofoL 40 ML IV ONE (11:41)
[2024-09-10] MEDS ORDERED: Lidocaine HCl 2% 20 ML MDV ONE (11:42)
--- NOTE | 2024-09-10 12:33 | NUR ---
Pre-Op teaching done. Pt verbalizes understanding. Ambulatory in Day Surgery. History, Chart, Medications and Allergies reviewed before start of procedure. Patient confirms NPO status and agrees with scheduled surgery.
[2024-09-10] MEDS ORDERED: Promethazine HCl 25 MG Tab PO PRN (12:55)
[2024-09-10] MEDS ORDERED: HYDROmorphone HCl/Pf 1MG SYR IV PRN ×2 (12:55→14:35)
[2024-09-10] MEDS ORDERED: OxyCODONE HCL 5 MG TAB PO PRN ×2 (12:55)
[2024-09-10] MEDS ORDERED: DiphenhydrAMINE HCL 25 MG Cap PO PRN (12:55)
[2024-09-10] MEDS ORDERED: Ondansetron HCl 2 MG / ML 2ML Vial IV PRN ×2 (12:55→14:30)
[2024-09-10] MEDS ORDERED: Magnesium Hydroxide Conc 10 ML UDC PO PRN (13:00)
[2024-09-10] MEDS ORDERED: Metoclopramide HCl 5MG / ML 2ML Vial IV PRN ×2 (13:00→14:35)
[2024-09-10] MEDS ORDERED: Bisacodyl 10 MG Supp PR PRN (13:00)
[2024-09-10] MEDS ORDERED: Ketorolac Tromethamine 15mg Vial IV PRN (13:50)
[2024-09-10] MEDS ORDERED: Lactated Ringer's 1,000 ML IV SCH (14:00)
[2024-09-10] MEDS ORDERED: propofoL 20 ML IV ONE (14:12)
[2024-09-10] MEDS ORDERED: FentaNYL Citrate 50 MCG/ML 2 ML Injection IV PRN ×3 (14:35)
[2024-09-10] MEDS ORDERED: Metoclopramide HCl 5MG / ML 2ML Vial ONE (14:57)
[2024-09-10] MEDS ORDERED: Ondansetron HCl 2 MG / ML 2ML Vial ONE (14:57)
[2024-09-10] MEDS ORDERED: Midazolam HCl 1MG / ML 2ML Vial ONE (15:04)
[2024-09-10] MEDS ORDERED: Scopolamine Hydrobromide Patch TOP ONE (15:05)
[2024-09-10] MEDS ORDERED: Ketorolac Tromethamine 30mg Vial ONE (15:44)
--- NOTE | 2024-09-10 18:53 | NUR ---
SHIFT SUMMARY HAS STRUGGLED w/ N/V SINCE ARRIVAL TO THE UNIT. HAS SLOWLY IMPROVED BUT STILL HAS ONLY TAKEN IN SIPS. WAS ABLE TO GET UP TO THE BSC & VOID w/ MINIMAL DIZZINESS. SITTING UP IN CHAIR SINCE. IVF INFUSING.
[2024-09-10] MEDS ORDERED: CeFAZolin Sodium 2,000 MG in NS 100 ML IV SCH (21:00)
[2024-09-10] MEDS ORDERED: Docusate Sodium 100 MG Cap PO SCH (21:00)
[2024-09-10] MEDS ORDERED: Acetaminophen 500 MG Tab PO SCH (21:00)
[2024-09-11 03:59] VITALS: BP 105/66
[2024-09-11 05:51] LABS: BASOPHILS ABSOLUTE AUTO 0.04 K/mm3 (0.00-0.23); BASOPHILS PERCENT AUTO 1 % (0-2); EOSINOPHILS ABSOLUTE AUTO 0.09 K/mm3 (0.00-0.68); EOSINOPHILS PERCENT AUTO 2 % (0-6); Hematocrit 32.1 % (33.0-51.0); Hemoglobin 10.5 g/dL (11.5-16.0); IMMATURE GRAN ABSOLUTE AUTO 0.02 K/mm3 (0.00-0.10); IMMATURE GRAN PERCENT AUTO 0 % (0-1); LYMPHOCYTES ABSOLUTE AUTO 0.93 K/mm3 (0.84-5.20); LYMPHOCYTES PERCENT AUTO 15 % (21-46); MONOCYTES ABSOLUTE AUTO 0.74 K/mm3 (0.16-1.47); MONOCYTES PERCENT AUTO 12 % (4-13); Mean Corpuscular HGB 33.7 pg (26.0-34.0); Mean Corpuscular HGB Conc 32.7 g/dL (31.5-36.5); Mean Corpuscular Volume 103 fL (80-100); Mean Platelet Volume 9.9 fL (9.1-12.4); NEUTROPHILS ABSOLUTE AUTO 4.36 K/mm3 (1.96-9.15); NEUTROPHILS PERCENT AUTO 71 % (41-73); Platelet Count 226 K/mm3 (150-400); RDW Coefficient Variation 13.5 % (11.7-14.2); RDW Standard Deviation 51.3 fL (35.1-46.3); Red Blood Cell Count 3.12 M/mm3 (3.80-5.20); White Blood Cell Count 6.18 K/mm3 (4.00-11.30)
[2024-09-11] MEDS ORDERED: Levothyroxine Sodium 0.075 MG Tab PO SCH (06:00)
--- NOTE | 2024-09-11 06:57 | NUR ---
SHIFT SUMMARY. PT WITH MILD NAUSEA AT START OF SHIFT. NO EMESIS T/O NOC. MEDICATED WITH TYLENOL FOR PAIN. PT REPORTS TYLENOL IS ALL I TOOK FOR THE PAIN WHEN I HAD MY LEFT KNEE REPLACEMENT. KORI C/D/I. SL IVF AFTER #2 IV ANTIBIOTIC WAS COMPLETE. SHOULD WORK WITH PT TODAY AND BE D/C HOME. REPORT GIVEN TO JAZZ MACHUCA TO ASSUME CARE.
[2024-09-11 07:03] LABS: Bun/Creatinine Ratio 12.6 (12.0-20.0); Calcium, Blood 8.3 mg/dL (8.5-10.1); Creatinine, Blood 0.72 mg/dL (0.40-1.00)
[2024-09-11 07:29] VITALS: BP 131/88
[2024-09-11] MEDS ORDERED: NS 250 ML IV ONE (07:40)
[2024-09-11] MEDS ORDERED: AmLODIPine Besylate 5 MG Tab PO SCH (09:00)
--- NOTE | 2024-09-11 10:57 | NUR ---
DISCHARGE ALL INSTRUCTIONS READ AND SIGNED, CLEARS THERAPY, ALL BELONGINGS WITH ICE MACHINE AND DC PACKET WITH PATIENTS RIDE. IV TAKEN OUT INTACT AND PATIENT LEAVES VIA PRIVATE VEHICLE.
== END 2024-09-11 10:46 | disposition home or self-care (01) ==
LOC: ORSCMMR 11:23 → ORD 12:30 → SURS 15:44 → ORSCMMR 09-11 10:46
PROVIDERS: Orthopaedic Surgery
PROC: 0SRC0J9 Replacement of Right Knee Joint with Synthetic Substitute, Cemented, Open Approach (ICD-10-PCS; principal; 2024-09-10 13:00)
DX: M17.11 Unilateral primary osteoarthritis, right knee (principal); I10 Essential (primary) hypertension; Z86.718 Personal history of other venous thrombosis and embolism; Z79.01 Long term (current) use of anticoagulants; I50.9 Heart failure, unspecified; E03.9 Hypothyroidism, unspecified; Z79.899 Other long term (current) drug therapy; Z96.642 Presence of left artificial hip joint
CPT/HCPCS: 36415; 73560-RT; 80048; 85025; 97110; 97116; 97161; 97530; A9270; C1713; C1776; J0171; J0670; J0690; J0735; J1885; J2250; J2405; J2704; J2765; J2795; J3010; J7050; J7120